=== PATIENT | male | born 1985 | race Caucasian/White ===

== ENCOUNTER 2019-03-08 06:08 | Day surgery (SDC) | payer MEDICAID, OTHER ==
[~2019-03-08] VITALS: Ht 182.9 cm; Wt 107.3 kg
[~2019-03-08 06:08] MED LIST: SODIUM CHLORIDE 0.9% 1,000 ML IV ONE
[2019-03-08] MEDS ORDERED: LIDOCAINE 4% 50 ML SOLUTION TP ONE (06:09)
[2019-03-08] MEDS ORDERED: BENZOCAINE 20% 50 MCG/SPRAY 57 GM TP ONE (06:09)
[2019-03-08] MEDS ORDERED: ALBUTEROL SULFATE 2.5 MG/0.5 ML NEB SOLUTION NEB ONE (06:09)
[2019-03-08] MEDS ORDERED: LIDOCAINE 2% 30 ML JELLY TP ONE (06:09)
[2019-03-08] MEDS ORDERED: SODIUM CHLORIDE 0.9% 1,000 ML IV ONE (06:30)
[2019-03-08] MEDS ORDERED: FentaNYL CITRATE-PF 100 MCG/2 ML VIAL ONE (07:53)
[2019-03-08] MEDS ORDERED: MIDAZOLAM HCL 2 MG/2 ML VIAL ONE (07:53)
[2019-03-08] MEDS ORDERED: MethylPREDNISolone SOD SUCC 125 MG/2 ML VIAL ONE (08:44)
[2019-03-08] MEDS ORDERED: MethylPREDNISolone SOD SUCC 125 MG/2 ML VIAL IVP ONE (08:45)
[2019-03-08] MEDS ORDERED: OXYGEN THERAPY IH SCH (20:00)
== END 2019-03-08 11:00 | disposition home or self-care (01) ==
LOC: SURGERY 06:08
PROVIDERS: ATTEND Internal Medicine Critical Care Medicine
DX: R05 Cough (principal); J38.4 Edema of larynx; B37.0 Candidal stomatitis; J98.8 Other specified respiratory disorders; J45.909 Unspecified asthma, uncomplicated; I25.2 Old myocardial infarction; I25.10 Atherosclerotic heart disease of native coronary artery without angina pectoris; I10 Essential (primary) hypertension; G47.33 Obstructive sleep apnea (adult) (pediatric); Z87.891 Personal history of nicotine dependence; Z79.899 Other long term (current) drug therapy; F12.90 Cannabis use, unspecified, uncomplicated; Z97.3 Presence of spectacles and contact lenses; Z98.890 Other specified postprocedural states
CPT/HCPCS: 31623; 31624; 71045; 87015; 87070 ×2; 87101; 87205; 87206; 87220; 87252 ×2; 88108; 88312; 93005; J2250; J2930; J3010; J7030